=== PATIENT | female | born 1985 | race Caucasian/White ===

== ENCOUNTER 2020-03-08 15:48 | Emergency (ER) | payer OTHER ==
[~2020-03-08] VITALS: Ht 167.6 cm; Wt 74.8 kg
[~2020-03-08 15:48] MED LIST: BACTRIM DS TAB1 EACH PO; BACTROBAN CREAM30 G1 TOP; CONCERTA ER 2727 MG PO; HYDROCODONE-AP1 EAC6 PO; MEDROLDOSEPACK PO; NORCO 5-325 TA1 EACH PO; PHENTERMINE H37.5 MG PO; PREDNISONE 10 M10 M1 PO; TORADOL 10 MG T10 MG PO; VALIUM5 MG PO; VELIVET1 EACH PO
[2020-03-08] MEDS ORDERED: VYVANSE60 MG PO (16:02)
[2020-03-08] MEDS ORDERED: HYDROCODON-ACE1 EAC7 PO (16:37)
[2020-03-08 17:00] VITALS: BP 111/78
== END 2020-03-08 17:01 | disposition home or self-care (01) ==
LOC: M.ERS 15:48
DX: M25.511 Pain in right shoulder (principal); M54.2 Cervicalgia; M79.18 Myalgia, other site